=== PATIENT | female | born 1995 | race Caucasian/White ===

== ENCOUNTER 2017-08-12 09:45 | Emergency (ER) | payer OTHER ==
[~2017-08-12] VITALS: Ht 157.5 cm; Wt 63.5 kg
[~2017-08-12 09:45] MED LIST: AMOXICILLIN500 MG PO; NAPROSYN500 MG PO
[2017-08-12] MEDS ORDERED: ONDANSETRON ODT8 MG PO (11:44)
[2017-08-12] MEDS ORDERED: PRENATA CHEWAB1 EACH PO (11:53)
== END 2017-08-12 12:01 | disposition home or self-care (01) ==
LOC: ED 09:45
DX: O21.0 Mild hyperemesis gravidarum (principal); Z3A.01 Less than 8 weeks gestation of pregnancy; Z79.899 Other long term (current) drug therapy
CPT/HCPCS: 96372; 99283; J2405; J7030